=== PATIENT | male | born 1950 | race Caucasian/White ===

== ENCOUNTER 2024-01-31 08:06 | Day surgery (SDC) | payer MEDICARE ==
[~2024-01-31] VITALS: Ht 175.3 cm; Wt 88.4 kg
[2024-01-31] VITALS (21 sets, daily range): BP systolic 110–159; BP diastolic 69–94; PULSE 59–93; RESP 14–18; TEMP 98.1; O2SAT 95–99
[2024-01-31] MEDS ORDERED: FLUT1BLS12 INH (08:38)
[2024-01-31] MEDS ORDERED: FLEC100T35 PO (08:38)
[2024-01-31] MEDS ORDERED: BENA20TA83 PO (08:38)
[2024-01-31] MEDS ORDERED: RIVA20TA PO (08:38)
[2024-01-31] MEDS ORDERED: ALLO300T8 PO (08:38)
[2024-01-31] MEDS ORDERED: AMLO5TAB16 PO (08:38)
[2024-01-31 09:05] LABS: BASOPHILS # (AUTO) 0.1 X10'3 (0-0.2); BASOPHILS % (AUTO) 0.8 % (0-1); EOSINOPHILS # (AUTO) 0.2 X10'3 (0-0.9); EOSINOPHILS % (AUTO) 2.3 % (0-6); HEMATOCRIT 46.1 % (42.0-52.0); HEMOGLOBIN 15.5 g/dl (14.0-17.9); LYMPHOCYTES # (AUTO) 1.5 X10'3 (1.1-4.8); MEAN CORPUSCULAR HGB CONC 33.7 g/dL (33.0-36.5); MEAN CORPUSCULAR VOLUME 92.1 FL (78-98); MEAN PLATELET VOLUME 7.4 FL (7.4-10.4); MONOCYTES # (AUTO) 0.6 X10'3 (0-0.9); MONOCYTES % (AUTO) 8.5 % (2-12); NEUTROPHILS # (AUTO) 4.8 X10'3 (1.8-7.7); NEUTROPHILS % (AUTO) 67.4 % (42-75); PLATELET COUNT 230 X10'3 (140-440); RED BLOOD COUNT 5.01 X10'6 (4.70-6.10); RED CELL DISTRIBUTION WIDTH 14.6 % (11.5-14.5); WHITE BLOOD COUNT 7.2 X10'3 (4.5-11.0)
[2024-01-31 09:09] LABS: ALBUMIN 3.9 G/DL (3.4-5.0); ANION GAP 10 (8-16); BLOOD UREA NITROGEN 19 MG/DL (7-18); CALCIUM 9.1 MG/DL (8.5-10.1); CHLORIDE 102 MMOL/L (99-107); CREATININE 1.27 MG/DL (0.60-1.10); GLUCOSE 106 MG/DL (70-104); MAGNESIUM 1.6 MG/DL (1.5-2.4); POTASSIUM 4.6 MMOL/L (3.5-5.1); SODIUM 138 MMOL/L (135-145); TOTAL CARBON DIOXIDE 25.7 MMOL/L (24-32); eCRCL 53 ML/MIN; eGFR 56 ML/MIN
[2024-01-31 09:11] LABS: INR 1.4 INR; PROTHROMBIN TIME 14.1 SECONDS (9.0-12.0)
[2024-01-31] MEDS: MIDAZolam 1mg/ml 10ml vial IV ONE (09:18)
[2024-01-31] MEDS: fentaNYL/PF 50MCG/1 ML 2ML syringe IV ONE (09:18)
[2024-01-31] MEDS: normal saline 1000ml 1,000 ML IV SCH (09:19)
[2024-01-31] MEDS: propofol 10mg/ml 20ml vial IV PRN (11:19)
== END 2024-01-31 12:37 | disposition home or self-care (01) ==
LOC: SSTAY O 08:06
PROVIDERS: ATTEND Internal Medicine Cardiovascular Disease
DX: I48.3 Typical atrial flutter (principal); I48.91 Unspecified atrial fibrillation; I10 Essential (primary) hypertension; K21.9 Gastro-esophageal reflux disease without esophagitis; M10.9 Gout, unspecified; Z79.01 Long term (current) use of anticoagulants; Z79.899 Other long term (current) drug therapy; Z90.89 Acquired absence of other organs; Z98.890 Other specified postprocedural states; Z88.0 Allergy status to penicillin; Z88.8 Allergy status to other drugs, medicaments and biological substances; Z82.49 Family history of ischemic heart disease and other diseases of the circulatory system
CPT/HCPCS: 36415; 80048; 83735; 85025; 85610; 92960; 93005; 94760; A4620; J2250; J2704; J3010; J7030; Z7610